=== PATIENT | female | born 1955 | race Caucasian/White ===

== ENCOUNTER 2019-07-07 08:12 | Outpatient (CLI) | payer MEDICARE, BC, SELFPAY ==
[2019-07-07 08:41] LABS: Basophils # 0.1 10^3/uL (0.0-0.1); Basophils % 1.3 %; Eosinophils # 0.1 10^3/uL (0.0-0.8); Eosinophils % 3.1 %; Hematocrit 39.3 % (37.0-47.0); Hemoglobin 12.3 g/dL (11.5-15.3); Lymphocytes # 1.4 10^3/uL (0.8-4.8); Lymphocytes % 32.1 %; Mean Corpuscular HGB Conc 31.3 g/dL (30.0-36.0); Mean Corpuscular Hemoglobin 29.2 pg (28.0-34.0); Mean Corpuscular Volume 93.3 fL (81-99); Mean Platelet Volume 9.9 fL (7.4-10.4); Monocytes # 0.3 10^3/uL (0.2-0.9); Monocytes % 7.6 %; Neutrophils # 2.5 10^3/uL (1.8-7.7); Neutrophils % 55.7 %; Nucleated Red Blood Cells % 0 %; Platelet Count 282 10^3/cmm (130-400); Red Blood Count 4.21 10^6/uL (4.1-5.3); Red Cell Distribution Width 13.4 % (12.1-15.1); White Blood Count 4.5 10^3/uL (4.0-10.0)
[2019-07-07 09:22] LABS: Alanine Aminotransferase 12 U/L (0-33); Albumin Level 4.6 g/dL (3.5-5.2); Alkaline Phosphatase 55 IU/L (35-105); Anion Gap 14.8 (5-19); Aspartate Amino Transferase 21 U/L (0-32); Blood Urea Nitrogen 15 mg/dL (8-23); Calcium 9.4 mg/dL (8.5-10.5); Carbon Dioxide 28 mmol/L (22-29); Chloride 103 mmol/L (98-107); Globulin 2.7 g/dL (1.3-4.6); Glucose 100 mg/dL (65-115); Osmolality Calculated 290 mOsm/kg (285-295); Potassium 3.8 mmol/L (3.5-5.1); Sodium 142 mmol/L (136-145); Thyroid Stimulating Hormone 3.39 uIU/mL (0.27-4.20); Total Bilirubin 0.4 mg/dL (0.15-1.2); Total Protein 7.3 g/dL (6.6-8.7)
[2019-07-07 11:05] LABS: Add Urine Microscopic? YES; Bilirubin Urine Neg (NEGATIVE); Blood Urine 2+ (Negative); Glucose Urine UA Norm (Normal); Ketones Urine Negative (Negative); Leukocyte Esterase Urine Negative (Negative); Nitrate Urine Negative (Negative); Protein Urine Neg (Negative); Specific Gravity, Urine 1.005 (1.005-1.030); Urine Appearance Clear (CLEAR); Urine Color Straw (Yellow); Urobilinogen Urine Norm (Negative)
[2019-07-07 11:14] LABS: Add Urine Culture? No; Bacteria Urine TRACE; RBC Urine 0-4 /hpf (0-2); Squamous Epithelial Cell Urine 0-4 (0-5)
--- NOTE | 2019-07-10 09:43 | ONC FU_ITS ---
Dr. Schwab Patient Follow-Up Note Patient: Lani Hernández Unit #: [id number]: [id number] Dicatated By: Angel Schwab M.D.Date of Visit:July 07, 2019 Onc Med Follow-up/Prog Note Chief Complaint: Carcinoma of the base of the tongue. 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 She has a history of rhinoplasty and chin implant. She had presented with 4 month history of right cervical lymphadenopathy not responding to antibiotic therapy. On 04/25/2015 laryngoscopy and stroboscopy by Dr. Preciado showed a mass in the right base of the tongue with deviation of nasal septum to the right. An ultrasound guided fine-needle aspiration of the right jugulodigastric lymph node revealed squamous cell carcinoma. She then underwent an examination under anesthesia on 05/11/2015. Based on discussion with Dr. Preciado, T1 tumor was appreciated. 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 Immunohistochemistry was positive for p16, p63 and CK 5/6. Her staging PET/CT on 05/14/2015 demonstrated a primary right oropharyngeal carcinoma but also showed multiple bilateral cervical metastases up to 1.5 cm. Thus, her disease was clinical stage PATRICIA (pT1c, N2c, M0). She was first seen by Dr. Avendaño on 06/02/2015. She began on definitive concurrent chemotherapy and radiation. A 24 urine creatinine clearance was more than 70 mg/dL. Bolus cisplatin chemotherapy together with concurrent radiation treatment was recommended. Cycle 1 delivered on 07/07/2015. Her treatment was complicated with significant esophagitis, dysphagia and GERD exacerbation. Day 22 of cisplatin was delayed for 1 week because of asymptomatic neutropenia, eventually delivered 08/04/15. Her radiation treatment was completed on 08/25/2015 to a total dose of 7000 cGy. Restaging PET/CT on 10/29/2015 was consistent with complete response to treatment. She was then followed on observation/expectant management. Her medical history is otherwise significant for migraine headaches. She developed hypothyroidism following her neck radiation. She is a nonsmoker. INTERIM HISTORY: Restaging CT scans of the neck and chest on 12/14/2016 showed no evidence of mass or lymphadenopathy in the neck. A 4 mm asymmetric pulmonary micronodule in the right lung apex appeared stable compared to previous neck CT from February 2015. Also noted was a 3 mm pulmonary micronodule within the posterior segment of the right upper lobe. There was a 1.5 cm cyst noted in the dome of the right hepatic lobe. A subcentimeter hypodensity of the lateral segment of the left hepatic lobe was too small to accurately characterize. Surveillance chest CT on 06/17/2017 showed no acute pulmonary infiltrates and no visualized metastatic disease in the chest. There was no mediastinal or hilar adenopathy noted. A right hepatic cyst measuring 1.2 cm appeared unchanged from the prior PET/CT. Her repeat chest CT on 06/20/2018 showed a stable pattern of trace subpleural nodularity in the right upper lobe. There was no thoracic lymphadenopathy by size criteria. Overall there was no evidence for metastatic disease or other acute pulmonary pathology. Neck CT showed no abnormal findings. With those findings, she continued on observation/expectant management. She is seen for a followup visit. She indicates that about 3 weeks ago she was diagnosed with shingles in her lower left chest area, just beneath the left breast. It was fairly mild episode, but she also then developed pain and swelling in the area behind her left ear. She says the pain is getting better, but she still feels a knot there. Her energy is a little down, but she still has normal activity. ECOG score is 0. Appetite is good. She has no fever or night sweats. She has a dry mouth, but no difficulty swallowing. She has no shortness of breath, cough, or chest pain. She has no GI complaints other than occasional heartburn. She is having no bladder symptoms other than some urinary frequency. A recent urinalysis done by her homeopathic physician showed microscopic hematuria. She has no other joint or bone pain. She has occasional headaches, generally in association with weather changes. She occasionally has dizziness. She has no focal neurologic symptoms. Medications: Levo-T 1 (50 mcg) Tablet Oral daily Allergies: No Known Allergies. Review of Systems: Constitutional - She has generally been feeling good. Her energy is good. She is doing some walking and she has normal activity. Her appetite is good and weight is stable. No fever, chills, hot flashes, or night sweats. ECOG score is 0, ENMT - She has some sinus congestion/drainage. Her mouth is dry. No sore throat or difficulty swallowing. She had pain and swelling in the area behind her left ear following and episode of shingles. She also felt a knot in that area, Hematologic/Lymphatic - No abnormal bruising or bleeding, Respiratory - No shortness of breath. No cough. No pleuritic pain or hemoptysis, Cardiovascular - No angina pain. No palpitations, Gastrointestinal - No nausea or vomiting. No heartburn or acid reflux. No diarrhea or constipation. No blood in the stool or black stools, Genitourinary (F) - No dysuria or hematuria. She has urinary frequency. No urgency or incontinence, Musculoskeletal - She has no significant joint or bone pain, Integumentary - She recently was treated for shingles in the left lower chest area, Neurologic - She has sinus headaches with weather changes. She has occasional dizziness. No numbness/paresthesias or other focal neurologic symptoms, Psychiatric - No anxiety or depression. No insomnia. Vital Signs: Performed on July 07, 2019 09:39 Height - 64.00 in Weight - 146.4 lbs (HIGH) BSA - 1.71 sq.m BMI - 25.13 Temperature - 97.8 F (LOW) Pulse - 68 /min Respiration - 20 /min BP - 160/80 mm(hg) (HIGH) O2 Sat - 100 % Pain - 0 Physical Examination: Constitutional - She looks good generally, Eyes - Sclerae nonicteric. Conjunctivae clear, ENMT - Mouth is dry. There are no lesions noted in the oral cavity, Neck - There is a residual nodule palpable in the left occipital area, Hematologic/Lymphatic - No cervical, clavicular, or axillary adenopathy, Respiratory - Lungs are clear with good air movement bilaterally, Cardiovascular - Heart rhythm is regular. There is no murmur, gallop, or rub noted, Abdomen - Soft. Liver and spleen are not enlarged. There is no abdominal mass or ascites noted and there is no inguinal adenopathy, Extremities - No edema, Neurologic - No focal neurologic deficits noted. Lab/Imaging: Test performed on July 07, 2019 08:25 Sodium 142 mmol/L TSH 3.39 uIU/mL Potassium 3.8 mmol/L Chloride 103 mmol/L CO2 28 mmol/L Anion Gap 14.8 BUN 15 mg/dL Creatinine 0.8 mg/dL Cr Clearance (Est) 67.5700 mL/min eGFR 72.0 mL/min Glucose 100 mg/dL Calcium 9.4 mg/dL Protein, Total 7.3 g/dL Albumin 4.6 g/dL Globulin 2.7 g/dL Bilirubin, Total 0.4 mg/dL ALT (SGPT) 12 U/L AST (SGOT) 21 U/L Alkaline Phosphatase 55 IU/L WBC 4.5 10 3/uL RBC 4.21 10 6/uL HGB 12.3 g/dL HCT 39.3 % MCV 93.3 fL MCH 29.2 pg MCHC 31.3 g/dL RDW 13.4 % Platelet Count 282 10 3/cmm MPV 9.9 fL Neutrophils 2.5 10 3/uL Lymphocytes 1.4 10 3/uL Monocytes 0.3 10 3/uL Eosinophils 0.1 10 3/uL Basophils 0.1 10 3/uL Neutrophil % 55.7 % Lymphocyte % 32.1 % Monocyte % 7.6 % Eosinophil % 3.1 % Basophils % 1.3 % Impression: 1. 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 By clinical evaluation, her disease was stage PATRICIA (pT1c, N2c, M0) at initial diagnosis in April 2015. 2. She was treated with definitive chemoradiation utilizing bolus cisplatin for chemosensitization. Radiation was completed on 08/25/2015 to a total dose of 7000 cGy. Chemotherapy was limited to 2 doses of cisplatin, mainly because of neutropenia. 3. Restaging PET/CT on 10/29/2015 was consistent with complete response. She has since then been followed on observation/expectant management. There were 2 tiny pulmonary nodules noted on her restaging chest CT in November 2016. A follow-up surveillance chest CT in May 2017 showed no evidence of metastatic involvement, and her repeat CT scans in May 2018 also showed stable findings. During follow-up she has had a little decline in her energy/activity tolerance but there has previously been no evidence of recurrence of the squamous cell cancer. She presents now with a residual nodule in the left postauricular/occipital area. This occurred in association with an episode of herpes zoster, but that was in the lower left chest area. She otherwise appears to be doing well clinically. Plan: She remains on observation/expectant management. She will be scheduled for a restaging PET/CT. If that is negative, I will just see her again in 1 year. In the meantime, I also will recheck urinalysis. She will have further evaluation for hematuria as indicated. Signed By: Angel Schwab M.D. <<Signature on File>>
== END 2019-07-07 08:13 | disposition home or self-care (01) ==
PROVIDERS: Visit Provider Internal Medicine Medical Oncology
DX: Z08 Encounter for follow-up examination after completed treatment for malignant neoplasm (principal); Z85.810 Personal history of malignant neoplasm of tongue; R31.9 Hematuria, unspecified; R22.0 Localized swelling, mass and lump, head; E03.9 Hypothyroidism, unspecified; Z92.21 Personal history of antineoplastic chemotherapy; Z92.3 Personal history of irradiation; Z86.19 Personal history of other infectious and parasitic diseases
CPT/HCPCS: 36415; 80053; 81001; 84443; 85025; 99214

== ENCOUNTER 2019-07-17 13:10 | Outpatient (CLI) | payer MEDICARE, BC, SELFPAY ==
--- NOTE | 2019-07-17 13:15 | CTR_ITS ---
PROCEDURE INFORMATION: Exam: CT Chest With Contrast Exam date and time: 07/17/2019 2:30 PM Age: 63 years old Clinical indication: Condition or disease; Other: Malignant tongue CA; Follow-up oncological assessment; No known metastasis; Current or recent treatment: No current treatment; Patient HX: Restaging CT, HX of head/neck cancer TECHNIQUE: Imaging protocol: Computed tomography of the chest with intravenous contrast. Radiation optimization: All CT scans at this facility use at least one of these dose optimization techniques: automated exposure control; mA and/or kV adjustment per patient size (includes targeted exams where dose is matched to clinical indication); or iterative reconstruction. Contrast material: OMNI 300; Contrast volume: 50 ml; Contrast route: 22G; COMPARISON: CT chest w con* [id number] 06/17/2017 9:12 AM RADIATION DOSE METRICS: Total DLP: 457.38 mGy-cm FINDINGS: Lungs: There is mild dependent atelectasis. No airspace consolidation. There are few punctate calcified granulomas. No new or enlarging pulmonary nodule. Pleural space: Unremarkable. No pneumothorax. No pleural effusion. Heart: Unremarkable. No cardiomegaly. No pericardial effusion. Mediastinum: A small hiatal hernia is present. Aorta: Unremarkable. No aortic aneurysm. Lymph nodes: Unremarkable. No enlarged lymph nodes. Liver: There is an unchanged 1.5 x 1.2 cm fluid density cyst in the liver image 46. Additional subcentimeter hepatic hypodensities are unchanged. Bones/joints: Unremarkable. No acute fracture. Soft tissues: Unremarkable. CT/CT chest w con* [id number] IMPRESSION: Unchanged exam. Unchanged liver cysts. No new or enlarging pulmonary nodule. No adenopathy. Stable mild emphysematous changes. Radiation Dose CTDIVOL = (mGy): DLP = 457.38 (mGy-cm)
--- NOTE | 2019-07-17 13:15 | CTR_ITS ---
PROCEDURE INFORMATION: Exam: CT Neck With Contrast Exam date and time: 07/17/2019 2:30 PM Age: 63 years old Clinical indication: Condition or disease; Other: Tongue; Patient HX: Restaging CT, HX of head/neck cancer; Additional info: Restaging CT; HX of head/neck cancer TECHNIQUE: Imaging protocol: Computed tomography images of the neck with intravenous contrast. Radiation optimization: All CT scans at this facility use at least one of these dose optimization techniques: automated exposure control; mA and/or kV adjustment per patient size (includes targeted exams where dose is matched to clinical indication); or iterative reconstruction. Contrast material: OMNI 300; Contrast volume: 45 ml; Contrast route: 22G; COMPARISON: CT neck w con* [id number] 03/06/2016 1:23 PM RADIATION DOSE METRICS: Total DLP: 622.21 mGy-cm FINDINGS: Nasopharynx: Unremarkable. Oropharynx: No new or recurrent mass is identified at the base of the tongue. Hypopharynx: Unremarkable. Larynx: Unremarkable. Normal epiglottis. Retropharyngeal space: Unremarkable. Submandibular/Parotid glands: Normal. Glands are normal in size. Thyroid: Normal. No enlarged or calcified nodules. Lymph nodes: Subcentimeter lymph nodes in the neck are unchanged. There is no new or enlarging adenopathy. Trachea: Visualized trachea is unremarkable. Lungs: Unremarkable as visualized. Bones/joints: Stable moderate diffuse degenerative changes are noted in the spine. No acute bony abnormality. No subluxation. Soft tissues: Unremarkable. No significant soft tissue swelling. CT/CT neck w con* [id number] IMPRESSION: No new or enlarging mass base of tongue neoplasm. No new or progressive adenopathy. Radiation Dose CTDIVOL = (mGy): DLP = 622.21 (mGy-cm)
[2019-07-17] MEDS: iohexol 300 mg/mL 100 mL Btl IV ×2 (15:53→15:54)
== END 2019-07-17 13:11 | disposition home or self-care (01) ==
LOC: RAD 13:10
PROVIDERS: Visit Provider Internal Medicine Medical Oncology
DX: C76.0 Malignant neoplasm of head, face and neck (principal)
CPT/HCPCS: 70491; 71260

== ENCOUNTER 2019-09-10 10:37 | Outpatient (CLI) | payer MEDICARE, BC, SELFPAY ==
--- NOTE | 2019-09-10 10:47 | MM_ITS ---
WS: [id number] Bilateral screening digital mammogram, 09/10/2019 Clinical Data: SCREENING Comparison: 09/04/2018, 07/19/2017, 07/12/2016, 06/09/2015, 03/12/2014, 03/11/2013, 01/07/2012, 06/26/2010, , 05/08/2007. Findings: The breast parenchymal pattern shows fat replacement. No spiculated masses or clustered calcification s are seen. There are no secondary signs of carcinoma. MM/[id number] Impression: 1. Negative bilateral mammogram unchanged. 2. Recommend annual screening mammograms. BIRADS: 1-Negative FOLLOW UP: 1 Year Follow-up The CAD raspberry checker was used.
== END 2019-09-10 10:38 | disposition home or self-care (01) ==
LOC: RADSHAW 10:42
PROVIDERS: Visit Provider Internal Medicine Medical Oncology
DX: Z12.31 Encounter for screening mammogram for malignant neoplasm of breast (principal)
CPT/HCPCS: 77067

== ENCOUNTER → 2020-03-23 11:34 | Outpatient (BNVA) | payer MEDICARE, BC, SELFPAY | PROVIDERS: Visit Provider Obstetrics & Gynecology | DX: N76.0 Acute vaginitis (principal); B96.89 Other specified bacterial agents as the cause of diseases classified elsewhere | CPT/HCPCS: 87210 ==

== ENCOUNTER → 2020-04-05 00:01 | Outpatient (BNVA) | payer MEDICARE, BC, SELFPAY | PROVIDERS: Visit Provider Obstetrics & Gynecology | DX: Z01.419 Encounter for gynecological examination (general) (routine) without abnormal findings (principal) | CPT/HCPCS: 82270 ==

== ENCOUNTER 2020-07-12 09:00 | Outpatient (CLI) | payer MEDICARE, BC, SELFPAY ==
--- NOTE | 2020-07-13 08:49 | ONC FU_ITS ---
Dr. Schwab Patient Follow-Up Note Patient: Lani Hernández Unit #: [id number]: [id number] Dicatated By: Angel Schwab M.D.Date of Visit:July 12, 2020 Onc Med Follow-up/Prog Note Chief Complaint: Carcinoma of the base of the tongue. 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 She has a history of rhinoplasty and chin implant. She had presented with 4 month history of right cervical lymphadenopathy not responding to antibiotic therapy. On 04/25/2015 laryngoscopy and stroboscopy by Dr. Preciado showed a mass in the right base of the tongue with deviation of nasal septum to the right. An ultrasound guided fine-needle aspiration of the right jugulodigastric lymph node revealed squamous cell carcinoma. She then underwent an examination under anesthesia on 05/11/2015. Based on discussion with Dr. Preciado, T1 tumor was appreciated. 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 Immunohistochemistry was positive for p16, p63 and CK 5/6. Her staging PET/CT on 05/14/2015 demonstrated a primary right oropharyngeal carcinoma but also showed multiple bilateral cervical metastases up to 1.5 cm. Thus, her disease was clinical stage PATRICIA (pT1c, N2c, M0). She was first seen by Dr. Avendaño on 06/02/2015. She began on definitive concurrent chemotherapy and radiation. A 24 urine creatinine clearance was more than 70 mg/dL. Bolus cisplatin chemotherapy together with concurrent radiation treatment was recommended. Cycle 1 delivered on 07/07/2015. Her treatment was complicated with significant esophagitis, dysphagia and GERD exacerbation. Day 22 of cisplatin was delayed for 1 week because of asymptomatic neutropenia, eventually delivered 08/04/15. Her radiation treatment was completed on 08/25/2015 to a total dose of 7000 cGy. Restaging PET/CT on 10/29/2015 was consistent with complete response to treatment. She was then followed on observation/expectant management. Restaging CT scans of the neck and chest on 12/14/2016 showed no evidence of mass or lymphadenopathy in the neck. A 4 mm asymmetric pulmonary micronodule in the right lung apex appeared stable compared to previous neck CT from February 2015. Also noted was a 3 mm pulmonary micronodule within the posterior segment of the right upper lobe. There was a 1.5 cm cyst noted in the dome of the right hepatic lobe. A subcentimeter hypodensity of the lateral segment of the left hepatic lobe was too small to accurately characterize. Surveillance chest CT on 06/17/2017 showed no acute pulmonary infiltrates and no visualized metastatic disease in the chest. There was no mediastinal or hilar adenopathy noted. A right hepatic cyst measuring 1.2 cm appeared unchanged from the prior PET/CT. Her repeat chest CT on 06/20/2018 showed a stable pattern of trace subpleural nodularity in the right upper lobe. There was no thoracic lymphadenopathy by size criteria. Overall there was no evidence for metastatic disease or other acute pulmonary pathology. Neck CT showed no abnormal findings. With those findings, she continued on expectant management. Her medical history is otherwise significant for migraine headaches. She developed hypothyroidism following her neck radiation. She is a nonsmoker. INTERIM HISTORY: Her surveillance CT scans on 07/17/2019 showed unchanged subcentimeter lymph nodes in the neck. There was no evidence of recurrent or progressive disease in the neck. Chest CT showed no new or enlarging pulmonary nodules. There is no adenopathy or other evidence of metastatic disease. She is seen for a followup visit. She has been feeling good generally. She says her energy has not what it used to be, but she still walks every day and she pretty much has normal activity. ECOG score is 0. Her appetite is good. She has continued to gain a little weight gradually. She has not had fever. She occasionally has a little sweating at night. She says her nose drips all the time and she has watery eyes, presumed allergy related. She has dry mouth and throat, which is chronic. She has no shortness of breath, cough, or chest pain. She occasionally has heartburn. She had an episode of vomiting last week. She has had no other GI complaints. She has frequent urination. She has no significant joint or bone pain. She has occasional migraines. She has no focal neurologic symptoms. Medications: Levo-T 1 (50 mcg) Tablet Oral daily Allergies: No Known Allergies. Vital Signs: Performed on July 12, 2020 10:04 Height - 64.00 in Weight - 149 lbs (HIGH) BSA - 1.73 sq.m BMI - 25.58 Temperature - 97.6 F (LOW) Pulse - 71 /min Respiration - 16 /min BP - 108/82 mm(hg) O2 Sat - 97 % Pain - 0 Physical Examination: Constitutional - She looks good generally, Eyes - Sclerae nonicteric. Conjunctivae clear, ENMT - Mouth is dry. There are no lesions noted in the oral cavity, Neck - There is residual induration on both sides of the neck. There is some mild nodularity at the base of the neck on the left side, Hematologic/Lymphatic - No cervical, clavicular, or axillary adenopathy, Respiratory - Lungs are clear with good air movement bilaterally, Cardiovascular - Heart rhythm is regular. There is no murmur, gallop, or rub noted, Abdomen - Soft. Liver and spleen are not enlarged. There is no abdominal mass or ascites noted and there is no inguinal adenopathy, Extremities - No edema, Neurologic - No focal neurologic deficits noted. Lab/Imaging: Test performed on July 12, 2020 09:26 TSH 2.69 uU/mL Glucose 100 mg/dL BUN 12 mg/dL Creatinine 0.93 mg/dL Cr Clearance (Est) 63.49 mL/min Sodium 140 mmol/L Potassium 3.9 mmol/L Chloride 103 mmol/L CO2 29 mmol/L Calcium 9.5 mg/dL Protein, Total 7.3 g/dL Albumin 4.4 g/dL Bilirubin, Total 0.4 mg/dL Alkaline Phosphatase 70 IU/L AST (SGOT) 22 IU/L ALT (SGPT) 14 IU/L WBC 4.2 10^9/L RBC 4.34 10^12/L HGB 12.9 g/dL HCT 40.5 % MCV 93.3 fl MCH 29.7 pg MCHC 31.9 g/dL RDW 12.8 % Platelet Count 300 10^9/L MPV 9.8 fL Neutrophils (Gran) 2.36 10^9/L Lymphocytes 1.31 10^9/L Monocytes 0.34 10^9/L Eosinophils 0.10 10^9/L Basophils 0.06 10^9/L Manual Lymphocytes 31 % Manual Monocytes 8 % Manual Eosinophils 2 % Manual Basophils 1 % Problem List: 1. Poorly differentiated squamous cell carcinoma involving the base of the tongue. By clinical evaluation, her disease was stage PATRICIA (pT1c, N2c, M0) at initial diagnosis in April 2015. She was treated with definitive chemoradiation utilizing bolus cisplatin for chemosensitization. Radiation was completed on 08/25/2015 to a total dose of 7000 cGy. 2. She has treatment related hypothyroidism. 3. Chronic migraine. Problems Addressed with this Encounter and Plan: 1. 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 By clinical evaluation, her disease was stage PATRICIA (pT1c, N2c, M0) at initial diagnosis in April 2015. She was treated with definitive chemoradiation utilizing bolus cisplatin for chemosensitization. Radiation was completed on 08/25/2015 to a total dose of 7000 cGy. Chemotherapy was limited to 2 doses of cisplatin, mainly because of neutropenia. She had complete response by follow-up PET/CT on 10/29/2015. She has remained on expectant management following completion of the radiation. During follow-up she has been doing very well clinically. She is now basically had 5 years following completion of her treatment, thus far with no evidence of recurrence of the cancer. She is scheduled to have a follow-up ENT visit with Dr. Preciado next month. She can otherwise continue follow-up with her primary care provider. I will plan to see her again only as needed. 2. She has treatment related hypothyroidism. Her current TSH is normal. She continues replacement therapy with levothyroxine 50 mcg daily. Signed By: Angel Schwab M.D. <<Signature on File>>
== END 2020-07-12 09:01 | disposition home or self-care (01) ==
PROVIDERS: Visit Provider Internal Medicine Medical Oncology
DX: Z08 Encounter for follow-up examination after completed treatment for malignant neoplasm (principal); Z85.810 Personal history of malignant neoplasm of tongue; E03.9 Hypothyroidism, unspecified; G43.919 Migraine, unspecified, intractable, without status migrainosus; Z79.899 Other long term (current) drug therapy; Z92.3 Personal history of irradiation; Z92.21 Personal history of antineoplastic chemotherapy
CPT/HCPCS: 99214

== ENCOUNTER 2020-09-12 12:57 | Outpatient (CLI) | payer MEDICARE, BC, SELFPAY ==
--- NOTE | 2020-09-12 13:12 | MM_ITS ---
WS: [id number] BILATERAL SCREENING DIGITAL MAMMOGRAM WITH CAD HISTORY: SCREENING COMPARISON: 09/10/2019 and 09/04/2018 Bilateral CC and MLO views submitted. Computer aided detection analyzed. Breast composition: There are scattered areas of fibroglandular density. No suspicious masses, microc alcifications or architectural distortion. Benign calcifications RIGHT breast. MM/[id number] IMPRESSION: BI-RADS: 2-Benign FOLLOW UP: 1 Year Follow-up
== END 2020-09-12 12:58 | disposition home or self-care (01) ==
LOC: RADSHAW 13:06
PROVIDERS: Visit Provider Obstetrics & Gynecology
DX: Z12.31 Encounter for screening mammogram for malignant neoplasm of breast (principal)
CPT/HCPCS: 77067

== ENCOUNTER 2021-09-15 15:09 | Outpatient (CLI) | payer MEDICARE, BC, SELFPAY ==
--- NOTE | 2021-09-15 | MM_ITS ---
WS: [id number] BILATERAL 3D TOMOSYNTHESIS DIGITAL SCREENING MAMMOGRAPHY WITH CAD CLINICAL INFORMATION: SCREENING HISTORY: Screening mammogram. No current complaints. COMPARISON: TECHNIQUE: Bilateral CC and MLO views. FINDINGS: Scattered fibroglandular densities bilaterally. A few incidental punctate and lucent centered calcifi cations. Small 3.5 mm ovoid asymmetry best seen on the LEFT MLO view appears new from previous centra l LEFT breast along the posterior nipple line. Recommend further evaluation with spot compression vie ws and ultrasound if persistent. RIGHT breast is unchanged and unremarkable. MM/[id number] IMPRESSION: BI-RADS: 0-Incomplete: Need additional imaging evaluation FOLLOW UP: Need Additional Imaging Recommend further evaluation small LEFT breast asymmetry with spot compression views and ultrasound if persistent.
== END 2021-09-15 15:10 | disposition home or self-care (01) ==
LOC: RAD 15:10
PROVIDERS: Visit Provider Obstetrics & Gynecology
DX: Z12.31 Encounter for screening mammogram for malignant neoplasm of breast (principal)
CPT/HCPCS: 77063; 77067

== ENCOUNTER 2021-10-12 13:24 | Outpatient (CLI) | payer MEDICARE, BC, SELFPAY ==
--- NOTE | 2021-10-12 13:31 | MM_ITS ---
WS: [id number] LEFT 3D TOMOSYNTHESIS DIGITAL MAMMOGRAPHY WITH CAD CLINICAL INFORMATION: R92.8 - Other abnormal and inconclusive findings on diagn... COMPARISON: September 15, 2021 TECHNIQUE: 3 views of the left breast were obtained. FINDINGS: Scattered fibroglandular densities of the left breast. Punctate and lucent centered calcifications. P reviously described 3.5 mm ovoid asymmetry central LEFT breast is persistent. Ultrasound described be low. ULTRASOUND BREAST LEFT TECHNIQUE: Ultrasound left breast focused area of concern. CLINICAL INFORMATION: R92.8 - Other abnormal and inconclusive findings on diagn... FINDINGS: Ultrasound LEFT breast at the 3:00 and 9:00 position. No suspicious cystic or solid lesions. No lesio ns to target for biopsy. No suspicious findings. Recommend return to annual screening mammography. MM/[id number] IMPRESSION: BI-RADS: 2-Benign FOLLOW UP: 1 Year Follow-up Recommend return to annual screening mammography.
== END 2021-10-12 13:25 | disposition home or self-care (01) ==
LOC: RAD 13:25
PROVIDERS: Visit Provider Obstetrics & Gynecology
DX: R92.8 Other abnormal and inconclusive findings on diagnostic imaging of breast (principal)
CPT/HCPCS: 76642; 77061

== ENCOUNTER 2022-10-05 14:05 | Outpatient (CLI) | payer MEDICARE, BC, SELFPAY ==
--- NOTE | 2022-10-05 14:14 | MM_ITS ---
WS: [id number] BILATERAL 3D TOMOSYNTHESIS DIGITAL SCREENING MAMMOGRAPHY WITH CAD CLINICAL INFORMATION: SCREENING HISTORY: Screening mammogram. No current complaints. COMPARISON: 2021 TECHNIQUE: Bilateral CC and MLO views. FINDINGS: Scattered fibroglandular densities bilaterally. No suspicious focal mass, asymmetry, calcifications, or architectural distortion. No evidence of malignancy. Incidental punctate and lucent centered calci fications. IMPRESSION: MM/[place] [id number] BI-RADS: 2-Benign FOLLOW UP: 1 Year Follow-up Recommend return to annual screening mammography.
== END 2022-10-05 14:06 | disposition home or self-care (01) ==
LOC: RAD 14:10 → MOBLMAM 14:12
PROVIDERS: PCP Nurse Practitioner Family; Visit Provider Obstetrics & Gynecology
DX: Z12.31 Encounter for screening mammogram for malignant neoplasm of breast (principal)
CPT/HCPCS: 77063; 77067

== ENCOUNTER 2023-10-21 10:44 | Outpatient (CLI) | payer MEDICARE, BC, SELFPAY ==
--- NOTE | 2023-10-21 10:49 | MM_ITS ---
WS: [id number] BILATERAL SCREENING DIGITAL TOMOSYNTHESIS MAMMOGRAM WITH CAD HISTORY: SCREENING COMPARISON: 10/05/2022, 10/12/2021 Bilateral CC and MLO views with tomosynthesis and synthetic mammography submitted. Computer aided det ection analyzed. Breast composition: There are scattered areas of fibroglandular density. No suspicious masses, microc alcifications or architectural distortion. Benign calcifications in each breast. MM/[place] [id number] IMPRESSION: BI-RADS: 2-Benign FOLLOW UP: 1 Year Follow-up
== END 2023-10-21 10:45 | disposition home or self-care (01) ==
LOC: RAD 10:44
PROVIDERS: PCP Nurse Practitioner Family; Visit Provider Obstetrics & Gynecology
DX: Z12.31 Encounter for screening mammogram for malignant neoplasm of breast (principal); Z12.4 Encounter for screening for malignant neoplasm of cervix
CPT/HCPCS: 77063; 77067; 87624

== ENCOUNTER 2024-07-30 08:43 | Outpatient (CLI) | payer MEDICARE, BC, SELFPAY ==
--- NOTE | 2024-07-30 08:48 | FL_ITS ---
WS: [id number] FL barium swallow [id number] REASON FOR EXAM: DYSPHAGIA FLUOROSCOPY TIME: 2min [id number] # OF SPOT FILMS: Multiple TECHNIQUE: Patient was examined in the upright PA and lateral position, prone TRACY, supine, and supine LPO. Swallowing of barium was fluoroscopically monitored and multiple spot films were obtained. FINDINGS: No penetration or aspiration was identified in the cervical esophagus. There were piriform sinus and vallecular residuals of contrast after the initial swallow. These collections with cleared with additional swallowing. No significant No significant cricopharyngeal impingement. The thoracic esophagus demonstrated mild dilatation with intermittent lower esophageal sphincter spasm. Intermittent retention of contrast with intermittent reflux to the level of the sternal notch. There were intermittent tertiary contractions. There is a small hiatal hernia. No significant Schatzki ring or stricture. No gastroesophageal reflux. FL/FL barium swallow [id number] IMPRESSION: Mild dysmotility of the cervical esophagus as above. Mild to moderate dysmotility of the thoracic esophagus as above.
== END 2024-07-30 08:44 | disposition home or self-care (01) ==
LOC: RAD 08:44
PROVIDERS: PCP Registered Nurse; Visit Provider Specialist
DX: R13.10 Dysphagia, unspecified (principal); K22.4 Dyskinesia of esophagus; K22.89 Other specified disease of esophagus; K44.9 Diaphragmatic hernia without obstruction or gangrene
CPT/HCPCS: 74220

== ENCOUNTER 2024-08-19 08:39 | Outpatient (CLI) | payer MEDICARE, BC, SELFPAY ==
--- NOTE | 2024-08-19 08:51 | FL_ITS ---
WS: [id number] Exam: FL barium swallow modifd [id number] Date/Time of Exam: 08/19/2024 8:52 AM Reason For Exam: Other dysphagia Fluoroscopy time: 3min [id number] minutes # of spot films: Modified barium swallow test was performed in conjunction with the speech therapy service. Oral pharyngeal phase of swallowing was normal. The patient tolerated all consistencies of barium mixture foodstuffs without aspiration or penetration. The patient swallowed a barium tablet without complication. FL/FL barium swallow modifd [id number] IMPRESSION: 1. No aspiration or penetration identified. A separate report with recommendations will follow from the speech therapy serv ice.
== END 2024-08-19 08:40 | disposition home or self-care (01) ==
PROVIDERS: PCP Registered Nurse; Visit Provider Specialist
DX: R13.19 Other dysphagia (principal)
CPT/HCPCS: 74230; 92611

== ENCOUNTER 2024-10-21 12:31 | Outpatient (CLI) | payer MEDICARE, BC, SELFPAY ==
--- NOTE | 2024-10-21 12:35 | MM_ITS ---
WS: [id number] BILATERAL 3D TOMOSYNTHESIS DIGITAL SCREENING MAMMOGRAPHY WITH CAD CLINICAL INFORMATION: ANNUAL SCREEN HISTORY: Screening mammogram. No current complaints. COMPARISON: 2023 TECHNIQUE: Bilateral CC and MLO views. FINDINGS: Scattered fibroglandular densities bilaterally. No suspicious focal mass, asymmetry, calcifications, or architectural distortion. No evidence of malignancy. Lucent centered calcifications RIGHT breast. MM/MM scr BI tomosynthesis [id number] IMPRESSION: DENSITY: There are scattered areas of fibroglandular density. BI-RADS: 2 - Benign. FOLLOW UP: 1 Year Follow-up Recommend return to annual screening mammography.
== END 2024-10-21 12:32 | disposition home or self-care (01) ==
LOC: RAD 12:32
PROVIDERS: PCP Registered Nurse; Visit Provider Registered Nurse
DX: Z12.31 Encounter for screening mammogram for malignant neoplasm of breast (principal); R92.323 Mammographic fibroglandular density, bilateral breasts
CPT/HCPCS: 77063; 77067